=== PATIENT | female | born 1970 | race Caucasian/White ===

== ENCOUNTER 2017-02-23 19:07 | Emergency (ER) | payer OTHER, BC ==
[~2017-02-23] VITALS: Ht 157.5 cm; Wt 54.5 kg
[2017-02-23] MEDS ORDERED: ONE DAILY WOME1 EACH PO (19:18)
[2017-02-23] MEDS ORDERED: DHA PO (19:18)
[2017-02-23 20:11] VITALS: BP 127/60
== END 2017-02-23 20:11 | disposition home or self-care (01) ==
LOC: ED 19:07
DX: S16.1XXA Strain of muscle, fascia and tendon at neck level, initial encounter (principal); S13.4XXA Sprain of ligaments of cervical spine, initial encounter; S00.12XA Contusion of left eyelid and periocular area, initial encounter; V43.52XA Car driver injured in collision with other type car in traffic accident, initial encounter; Y92.410 Unspecified street and highway as the place of occurrence of the external cause

== ENCOUNTER → 2018-08-14 | Day surgery (SDC) | payer BC ==
[~2018-08-14] MED LIST: DHA PO; ONE DAILY WOME1 EACH PO
== END ==
LOC: MSO 08:01
DX: Z12.11 Encounter for screening for malignant neoplasm of colon (principal); D12.2 Benign neoplasm of ascending colon
CPT/HCPCS: 00811; J2405; J2704; J7120

== ENCOUNTER → 2024-07-09 | Day surgery (SDC) | payer BC ==
[~2024-07-09] MED LIST changes: +Lidocaine PF 2% (20 MG/ML) 5 ML VIAL ONE
== END | disposition home or self-care (01) ==
LOC: MSO 07:21
DX: Z12.11 Encounter for screening for malignant neoplasm of colon (principal); Z86.0100 Personal history of colon polyps, unspecified
CPT/HCPCS: 00812; J2704; J7120